=== PATIENT | male | born 1955 | race African-American/Black ===

== ENCOUNTER 2022-08-01 05:14 | Inpatient (IN) | payer MEDICARE, MEDICAID ==
[~2022-08-01] VITALS: Ht 180.3 cm; Wt 107.0 kg
[2022-08-01] MEDS ORDERED: KETOROLAC 15MG/ML VIAL IV ONE (08:15)
[2022-08-01 08:35] LABS: CHLORIDE 110 mEq/L (98-107); PROTHROMBIN TIME 11.1 sec (9.6-11.0)
[2022-08-01 08:57] LABS: HEMATOCRIT. 36.9 % (42.0-52.0); HEMOGLOBIN. 11.9 g/dL (14.0-18.0); PLATELET 209 x1000/uL (130-400); RED CELL DISTRIBUTION WIDTH 15.7 % (11.6-14.6)
[2022-08-01 09:41] LABS: PLATELET ESTIMATE NORMAL
[2022-08-01 10:54] LABS: CLARITY URINE CLEAR (CLEAR); COLOR URINE YELLOW (YELLOW); KETONES URINE NEGATIVE (NEGATIVE); LEUKOCYTE ESTERASE URINE NEGATIVE (NEGATIVE); NITRITE URINE NEGATIVE (NEGATIVE); OCCULT BLOOD URINE 1+ (NEGATIVE); PH URINE 5.5 (4.5-8.0); PROTEIN URINE TRACE (NEGATIVE); SPECIFIC GRAVITY URINE 1.011 (1.005-1.030); UROBILINOGEN URINE 0.2 E.U./dL (0.2-1.0)
[2022-08-01] MEDS ORDERED: CEFTRIAXONE 1 G PREMIX 50 ML IV STA (11:38)
[2022-08-01] MEDS ORDERED: CLONIDINE 0.1MG TABLET PO PRN (13:00)
[2022-08-01] MEDS ORDERED: ACETAMINOPHEN 325MG TABLET PO PRN ×2 (14:15)
[2022-08-01] MEDS ORDERED: IPRATROPIUM/ALBUTEROL 0.5-3(2.5)MG/3ML NEB HHN PRN (14:15)
[2022-08-01] MEDS ORDERED: GUAIFENESIN 200MG/10ML SUGAR FREE UDC PO PRN (14:15)
[2022-08-01] MEDS ORDERED: ONDANSETRON HCL 4MG/2ML INJ IV PRN (14:15)
[2022-08-01] MEDS ORDERED: POLYETHYLENE GLYCOL 3350 (17GM) 1 DOSE PACK PO PRN (14:45)
[2022-08-01 14:58] LABS: *AMPHETAMINES SCREEN URINE NEGATIVE (NEGATIVE); *BARBITURATES SCREEN URINE NEGATIVE (NEGATIVE); *BENZODIAZEPINES SCREEN URINE NEGATIVE (NEGATIVE); *COCAINE SCREEN URINE NEGATIVE (NEGATIVE); CANNABINOID URINE SCREEN PRESUMTIVE POSITIVE (NEGATIVE); METHADONE URINE SCREEN NEGATIVE (NEGATIVE); OPIATES URINE SCREEN NEGATIVE (NEGATIVE); PHENCYCLIDINE URINE SCREEN NEGATIVE (NEGATIVE)
[2022-08-01 15:09] VITALS: BP 158/102
[2022-08-01] MEDS ORDERED: ALBUTEROL (0.083%) 2.5MG/3ML NEB HHN PRN (15:30)
[2022-08-01] MEDS ORDERED: IPRATROPIUM BROMIDE (0.02%) 0.5MG/2.5ML NEB HHN PRN (15:30)
[2022-08-01] MEDS: SENNOSIDES/DOCUSATE SOD 8.6/50MG TABLET PO SCH (17:30)
[2022-08-01] MEDS: AMLODIPINE 10MG TABLET PO SCH (17:30)
[2022-08-01] MEDS: ENOXAPARIN 40MG/0.4ML SYR SUBCUT SCH (17:31)
[2022-08-01 20:00] VITALS: BP 138/77
[2022-08-02] VITALS: BP 147/85
[2022-08-02 04:00] VITALS: BP 149/94
[2022-08-02 06:07] LABS: HEMATOCRIT 36.7 % (42.0-52.0); HEMOGLOBIN 12.2 g/dL (14.0-18.0); MEAN CORPUSCULAR HEMOGLOBIN 29.7 pg (28.0-32.0); MEAN CORPUSCULAR VOLUME 89.3 fL (80.0-94.0); PLATELET 200 x1000/uL (130-400); RED BLOOD CELL COUNT 4.11 mill/uL (4.7-6.1); RED CELL DISTRIBUTION WIDTH 15.8 % (11.6-14.6)
[2022-08-02 08:00] VITALS: BP 167/96
[2022-08-02 08:16] LABS: PHOSPHORUS 3.3 mg/dL (2.5-4.9); T4 FREE 1.09 ng/dL (0.76-1.46)
[2022-08-02 08:26] LABS: VITAMIN B12 SERUM 352 pg/mL (211-911)
[2022-08-02 08:32] LABS: FERRITIN 85 ng/mL (22-322)
[2022-08-02] MEDS: SENNOSIDES/DOCUSATE SOD 8.6/50MG TABLET PO SCH ×2 (09:14→17:42)
[2022-08-02] MEDS: AMLODIPINE 10MG TABLET PO SCH (09:15)
[2022-08-02 12:00] VITALS: BP 144/81
[2022-08-02] MEDS: FERROUS SULFATE 325MG TABLET PO SCH (14:40)
[2022-08-02] MEDS: SODIUM CHLORIDE 0.45% 1,000 ML IV SCH ×2 (14:40→23:24)
[2022-08-02 16:00] VITALS: BP 148/89
[2022-08-02] MEDS: ENOXAPARIN 40MG/0.4ML SYR SUBCUT SCH (17:00)
[2022-08-02 20:00] VITALS: BP 154/89
[2022-08-02] MEDS ORDERED: ATORVASTATIN CALCIUM 20MG TABLET PO SCH (21:00)
[2022-08-02] MEDS: NA PHOS,M-B/NA PHOS,DI-BA ENEMA 118ML PR PRN (21:28)
[2022-08-03] VITALS: BP 130/93
[2022-08-03 04:00] VITALS: BP 151/90
[2022-08-03] MEDS: NA PHOS,M-B/NA PHOS,DI-BA ENEMA 118ML PR PRN (04:01)
[2022-08-03] MEDS: SODIUM CHLORIDE 0.45% 1,000 ML IV SCH (05:38)
[2022-08-03 06:07] LABS: BASOPHILS % 0.3 % (0.0-2.0); EOSINOPHILS % 0.9 % (0.0-5.0); HEMATOCRIT. 37.4 % (42.0-52.0); HEMOGLOBIN. 12.4 g/dL (14.0-18.0); LYMPHOCYTES % 17.7 % (20.0-50.0); MEAN CORPUSCULAR HEMOGLOBIN 29.7 pg (28.0-32.0); MEAN CORPUSCULAR VOLUME 89.5 fL (80.0-94.0); MEAN PLATELET VOLUME 8.8 fl (7.4-10.4); MONOCYTES % 6.3 % (2.0-8.0); NEUTROPHILS % 74.8 % (40.0-76.0); PLATELET 199 x1000/uL (130-400); RED BLOOD CELL COUNT 4.18 mill/uL (4.7-6.1); RED CELL DISTRIBUTION WIDTH 16.1 % (11.6-14.6)
[2022-08-03 06:36] LABS: CHLORIDE 107 mEq/L (98-107)
[2022-08-03 08:00] VITALS: BP 169/111
[2022-08-03 08:19] VITALS: BP_SYST 161; BP_SYST 169; BP_DIAS 111; BP_DIAS 97
[2022-08-03] MEDS: FERROUS SULFATE 325MG TABLET PO SCH ×2 (08:35→08:36)
[2022-08-03] MEDS: SENNOSIDES/DOCUSATE SOD 8.6/50MG TABLET PO SCH (08:35)
[2022-08-03] MEDS: AMLODIPINE 10MG TABLET PO SCH (08:35)
[2022-08-03] MEDS ORDERED: TAMSULOSIN HCL 0.4MG SR CAPSULE PO SCH (09:00)
[2022-08-03] MEDS ORDERED: LOSARTAN POTASSIUM 25 MG TABLET PO SCH (09:00)
[2022-08-03] MEDS ORDERED: CEFTRIAXONE 1,000 MG in DEXTROSE 5% WATER 50 ML IV NR (09:30)
[2022-08-03] MEDS ORDERED: AMLO10TA80 PO (09:31)
[2022-08-03] MEDS ORDERED: TAMS-11 PO (09:31)
[2022-08-03] MEDS ORDERED: ATOR20TA PO (09:31)
[2022-08-03] MEDS ORDERED: LEVO250T74 PO (09:31)
[2022-08-03 09:55] VITALS: BP_SYST 150; BP_DIAS 80; BP_DIAS 91
== END 2022-08-03 10:55 | disposition home health service (06) | DRG 465 ==
LOC: ER 05:14 → 6EST 11:40 → EDBEDREQ 11:57 → EDBEDREQTM 11:57 → ENRESERV 14:33 → 6EST 15:15
PROVIDERS: ADMIT Internal Medicine; ATTEND Internal Medicine
DX: N13.8 Other obstructive and reflux uropathy (principal); N17.9 Acute kidney failure, unspecified; D64.9 Anemia, unspecified; I10 Essential (primary) hypertension; N39.0 Urinary tract infection, site not specified; N40.1 Benign prostatic hyperplasia with lower urinary tract symptoms; K59.09 Other constipation; E78.00 Pure hypercholesterolemia, unspecified; D72.829 Elevated white blood cell count, unspecified; Z85.46 Personal history of malignant neoplasm of prostate
CPT/HCPCS: 36415; 74176; 76770; 80048; 80053; 80061; 80305; 81003; 82607; 82728; 82746; 83036; 83540; 83550; 83605; 83735; 84100; 84153; 84439; 84443; 85025; 85027; 93005; 93970; 97116; 97161; 99285; J0696; J1650; J1885; J7060; A4315; G0103